=== PATIENT | female | born 1965 | race Caucasian/White ===

== ENCOUNTER → 2024-03-22 12:17 | Outpatient (REF) | payer OTHER, SELFPAY | LOC: RAD 12:17 | PROVIDERS: ATTENDING PHYSICIAN Nurse Practitioner | DX: S50.12XA Contusion of left forearm, initial encounter (principal) | CPT/HCPCS: 73090 ==

== ENCOUNTER → 2024-09-21 16:11 | Outpatient (REF) | payer OTHER, SELFPAY | LOC: RAD 16:11 | PROVIDERS: ATTENDING PHYSICIAN Internal Medicine Rheumatology; FAMILY PHYSICIAN Nurse Practitioner | DX: M54.50 Low back pain, unspecified (principal) | CPT/HCPCS: 72110 ==

== ENCOUNTER → 2024-11-28 10:43 | Outpatient (REF) | payer OTHER, SELFPAY | LOC: RAD 10:43 | PROVIDERS: ATTENDING PHYSICIAN Internal Medicine Rheumatology; FAMILY PHYSICIAN Nurse Practitioner | DX: M81.0 Age-related osteoporosis without current pathological fracture (principal); Z13.820 Encounter for screening for osteoporosis | CPT/HCPCS: 77080 ==